=== PATIENT | male | born 2000 | race Two or more races ===

== ENCOUNTER 2024-06-16 09:01 | Emergency (ER) | payer OTHER ==
[~2024-06-16] VITALS: Ht 177.8 cm; Wt 92.5 kg
[2024-06-16 09:25] VITALS: BP 124/67; PULSE 69; RESP 16; TEMP 99.4; O2SAT 96
[2024-06-16] MEDS: LET TOPICAL SOLN 5 ML TOP ONE (10:04)
[2024-06-16] MEDS: LIDOCAINE VISCOUS 2% 15ML UD MT ONE (10:37)
[2024-06-16] MEDS ORDERED: IBUP1TAB5 PO (12:44)
[2024-06-16] MEDS ORDERED: CEPH500T PO (12:44)
--- NOTE | 2024-06-16 12:44 | ED.PDOC ---
HPI Comments This is a pleasant 23-year-old gentleman that presents for work-related injury. Injury occurred 1 hour ago Patient has sustained a laceration to the left upper lip. Was hit with a plastic 2x2 wooden pipe No other complaints or concerns Last Tdap unknown Chief Complaint: Laceration Time Seen by MD: 09:19 Primary Care Provider: WORK [facility] Reviewed Notes: Nurses Notes, Medications, Allergies Allergies: Coded Allergies: NO KNOWN ALLERGIES (Unverified , 06/16/24) Home Meds Active Scripts Ibuprofen Micronized (Ibuprofen) 600 Mg Tab, 600 MG PO TID for 10 Days, #30 TAB 0 Refills Prov:ROMIE COLLINS CHARGE ENTRY SPECIALIST 06/16/24 Cephalexin Monohydrate (Cephalexin) 500 Mg Tab, 1 TAB PO QID for 7 Days, #28 TAB 0 Refills Prov:ROMIE COLLINS CHARGE ENTRY SPECIALIST 06/16/24 Information Source: Patient Mode of Arrival: Ambulatory Complexity: Complex Laceration Length (cm): 2 Past Medical History PAST MEDICAL HISTORY: Denies Surgical History: Denies all surgeries Family History Family History: Reviewed,noncontributory to illness Social History Smoker: Non-Smoker Alcohol: Denies ETOH Use Drugs: Denies Drug Use Lives In: Home All Other Systems: Reviewed and Negative (Per HPI of the) Physical Exam General Appearance: No Apparent Distress, Normal HEENT: Head (Normocephalic atraumatic), Normal ENT Inspection, Pharynx Normal, TMs Normal, Other Neck: Full Range of Motion, Non-Tender, Normal, Normal Inspection Respiratory: Chest Non-Tender, Lungs Clear, No Accessory Muscle Use, No Respiratory Distress, Normal Breath Sounds Cardiovascular: No Murmur, No Gallop, Regular Rate/Rhythm Breast Exam: Deferred Gastrointestinal: No Organomegaly, Non Tender, No Pulsatile Mass, Normal Bowel Sounds, Soft Genitalia: Deferred Pelvic: Deferred Rectal: Deferred Extremities: No calf tenderness, Normal capillary refill, Normal inspection, Normal range of motion, Non-tender, No pedal edema Musculoskeletal : Apperance: Normal Neurologic: Alert, axle polisher II-XII nml as Tested, No Motor Deficits, Normal Affect, Normal Mood, No Sensory Deficits Cerebellar Function: Normal Reflexes: Normal Skin: Dry, Normal Color, Warm Lymphatic: No Adenopathy Was a procedure done? Was a procedure done?: Yes Sedation Sedation?: No Laceration Repair : Location Upper lip Length 2 cm Anesthetic: Lidocaine, Other (Infraorbital nerve block) Laceration Repair Prep: Saline Informed consent obtained: Yes Risks, benefits, and alternati: Yes Images 1 - 1 cm linear lac. hemostasis. no fb. mild erythema Differential diagnosis Generic Laceration: Abrasion/Contusion, Laceration, Avulsion X-Ray, Labs, Meds, VS Vital Signs Date Time Temp Pulse Resp B/P (MAP) Pulse Ox O2 Delivery O2 Flow Rate FiO2 06/16/24 09:25 99.4 69 16 124/67 (86) 96 99.4 06/16/24 09:25 69 16 96 Room Air 06/16/24 09:10 99.4 69 16 124/69 (87) 96 99.4 X-Ray, Labs, Meds, VS Comment Lip laceration crossing the vermilion border Tetanus updated Wound >1cm Infraorbital nerve block with 1% Lidocaine Used absorbable 5-0 suture . The laceration was prepped in sterile fashion with sterile drapes On examination under direct light, there was no foreign body seen The laceration was repaired in simple interrupted technique There was no continuing bleeding on repair. There were no complications related to repair Antibiotics prescribed prophylactically Education and follow-up instructions provided Wound check in 2 days Return sooner for signs of infection such as fevers, increased pain, redness, green, yellow discharge, or any concerns Keep wound dry for 24 to 48 hours; dry dressing may be changed Protect from sunlight and keep area clean and dry. Use soap and water if it gets dirty High risk of possible scarring and education provided on ways to minimize scarring after wound heals Also provided education on possible complications post procedure including wound dehiscence, infection, etc. Time of 1ST Reevaluation: 12:43 Reevaluation 1ST: Improved Patient Education/Counseling: Diagnosis, Treatment, Prognosis Family Education/Counseling: Diagnosis, Treatment, Prognosis Departure 1 Departure Time of Disposition: 12:43 Impression: Primary Impression: Lip laceration Qualified Codes: S01.511A - Laceration without foreign body of lip, initial encounter Disposition: HOME / SELF CARE / HOMELESS Condition: Fair e-Prescriptions Ibuprofen Micronized (Ibuprofen) 600 Mg Tab 600 MG PO TID for 10 Days, #30 TAB 0 Refills Prov: ROMIE COLLINS CHARGE ENTRY SPECIALIST 06/16/24 Cephalexin Monohydrate (Cephalexin) 500 Mg Tab 1 TAB PO QID for 7 Days, #28 TAB 0 Refills Prov: ROMIE COLLINS NP 06/16/24 Critical Care Note Critical Care Time?: No Stability Stability form required: No Heart Score Heart Score: Heart Score Response (Comments) Value History N/A 0 EKG N/A 0 Age N/A 0 Risk Factors N/A 0 Troponin N/A 0 Total 0 ROMIE COLLINS NP Jun 16, 2024 12:44
[2024-06-16] MEDS: TETANUS-DIPTH-ACEL PERTUSSIS 0.5ML SYR Tdap IM ONE (12:45)
[2024-06-16] MEDS: ceFAZolin IM 1GM/2.5ML STERILE WATER IM ONE (12:45)
== END 2024-06-16 14:21 | disposition home or self-care (01) ==
LOC: ER 09:01
DX: S01.511A Laceration without foreign body of lip, initial encounter (principal); Z79.1 Long term (current) use of non-steroidal anti-inflammatories (NSAID); X58.XXXA Exposure to other specified factors, initial encounter; Y93.89 Activity, other specified; Y92.89 Other specified places as the place of occurrence of the external cause; Y99.0 Civilian activity done for income or pay
CPT/HCPCS: 40650; 96372; 99284; J0690; 90715